=== PATIENT | female | born 1980 | race Caucasian/White ===

== ENCOUNTER 2019-01-10 22:06 | Emergency (ER) | payer OTHER ==
[~2019-01-10] VITALS: Ht 172.7 cm; Wt 64.4 kg
[~2019-01-10 22:06] MED LIST: PAIN RELIEF500 M1 PO
--- OUTSIDE RECORDS SUMMARY | 2019-01-10 22:10 | XMS ---
PreManage Notification: MIKAEL HERMAN Security Booking [employer]zer Events No recent Security Events currently on file CRITERIA MET [facility] There are no care providers on record at this time. Steffen has no Care Guidelines for this patient. Aileen VISIT COUNT (12 MO.) 2 ADILENE Marquez TOTAL 2 NOTE: Visits indicate total known visits. ED/C VISIT TRACKING (12 MO.) 01/10/2019 22:07 ADILENE Do OR TYPE: Emergency COMPLAINT: - VAGINAL BLEEDING/12 WEEKS 08/05/2018 16:08 ADILENE Do OR TYPE: Emergency COMPLAINT: - COLD SYMPTOMS DIAGNOSES: - Acute nasopharyngitis [common cold] - Cough INPATIENT VISIT TRACKING (12 MO.) No inpatient visits to display in this time frame [id number]
[2019-01-10] MEDS ORDERED: PRENATAL GUMMI1 EACH PO (22:13)
[2019-01-10] MEDS ORDERED: BUPRENORPHINE HC8 MG SL (22:20)
== END 2019-01-11 01:21 | disposition home or self-care (01) ==
LOC: ED 22:06
DX: O20.0 Threatened abortion (principal); O99.331 Smoking (tobacco) complicating pregnancy, first trimester; F17.200 Nicotine dependence, unspecified, uncomplicated; Z3A.12 12 weeks gestation of pregnancy
CPT/HCPCS: 76801; 76817; 80053; 84702; 85025; 86900; 86901; 99284-25

== ENCOUNTER 2024-11-26 15:54 | Emergency (ER) | payer OTHER ==
[~2024-11-26] VITALS: Ht 172.7 cm; Wt 94.8 kg
[~2024-11-26 15:54] MED LIST changes: +BUPRENORPHINE HC8 MG SL; +PRENATAL GUMMI1 EACH PO
[2024-11-26] MEDS ORDERED: PREDNISONE20 MG PO (19:14)
[2024-11-26] MEDS ORDERED: VALIUM2 MG PO (19:14)
[2024-11-26] MEDS ORDERED: predniSONE 20 MG TAB PO ONE (19:15)
[2024-11-26] MEDS ORDERED: ONDANSETRON 4 MG TAB ODT SL ONE (19:15)
[2024-11-26] MEDS ORDERED: diazePAM 5 MG TAB PO ONE (19:15)
[2024-11-26] MEDS ORDERED: KETOROLAC TROMETHAMINE 60 MG/2 ML VIAL IM ONE (19:15)
[2024-11-26 20:05] VITALS: BP 145/102
== END 2024-11-26 20:05 | disposition home or self-care (01) ==
LOC: ED 15:54
DX: M54.42 Lumbago with sciatica, left side (principal); F17.200 Nicotine dependence, unspecified, uncomplicated; Z79.899 Other long term (current) drug therapy
CPT/HCPCS: 96372; 99283; A9270; J1885; J7512

== ENCOUNTER 2024-12-02 15:35 | Emergency (ER) | payer OTHER ==
[~2024-12-02] VITALS: Ht 172.7 cm; Wt 95.3 kg
[2024-12-02 16:23] LABS: BILIRUBIN, URINE NEGATIVE (negative); BLOOD/HGB, URINE MODERATE (Negative); KETONE, URINE NEGATIVE (Negative); LEUK ESTERASE, URINE NEGATIVE (negative); NITRITE, URINE NEGATIVE (negative)
[2024-12-02 16:29] LABS: WHITE BLOOD CELLS, URINE 0-1 /HPF (0-5)
[2024-12-02 16:30] LABS: BACTERIA, URINE NONE SEEN /hpf (negative); CASTS, URINE NONE SEEN \\lpf; CRYSTALS, URINE NONE SEEN (0-1+); EPITHELIAL CELLS, URINE SQUAMOUS 3+ /lpf (0-1+); REFLEX CULTURE, URINE No (No)
[2024-12-02 16:31] LABS: COLLECTION TYPE, URINE CLEAN CATCH
[2024-12-02] MEDS ORDERED: HYDROCODONE/APAP 10/325 1 TAB PO ONE (17:00)
[2024-12-02 18:40] VITALS: BP 141/85
== END 2024-12-02 18:41 | disposition home or self-care (01) ==
LOC: ED 15:35
PROVIDERS: Emergency Medicine
DX: M54.16 Radiculopathy, lumbar region (principal); R31.9 Hematuria, unspecified; F17.200 Nicotine dependence, unspecified, uncomplicated; Z79.52 Long term (current) use of systemic steroids; Z79.899 Other long term (current) drug therapy
CPT/HCPCS: 72100; 81001; 84703; 99283; A9270